=== PATIENT | female | born 1965 | race Asian ===

== ENCOUNTER 2017-11-09 13:12 | Emergency (ER) | payer OTHER ==
[~2017-11-09] VITALS: Ht 152.4 cm; Wt 47.6 kg
[2017-11-09 14:33] VITALS: BP 113/73
[2017-11-09 14:39] LABS: HIV 1&2 AB SCREEN NON-REACTIVE (NONREACTIVE)
== END 2017-11-09 15:25 | disposition home or self-care (01) ==
LOC: ER 13:12
DX: S61.232A Puncture wound without foreign body of right middle finger without damage to nail, initial encounter (principal); W46.1XXA Contact with contaminated hypodermic needle, initial encounter; Y99.0 Civilian activity done for income or pay
CPT/HCPCS: 36415; 87390; 99283; G0433; G0435

== ENCOUNTER → 2021-03-30 | Outpatient (CLI) | payer BC ==
[~2021-03-30] MED LIST: DIATRIZOATE MEGL/DIATRIZOA SOD 30 ML BTL PO ONE; IOPAMIDOL 370 MG/ML 200 ML INFUS..BTL INJ ONE; SODIUM CHLORIDE 0.9% 50ML 50 ML ONE
== END ==
LOC: CT 15:38
PROVIDERS: ATTEND Internal Medicine Gastroenterology
DX: R10.32 Left lower quadrant pain (principal)
CPT/HCPCS: 74177; Q9967